=== PATIENT | male | born 2000 | race Caucasian/White ===

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

== ENCOUNTER 2020-06-25 04:54 | Emergency (ER) | payer MEDICAID ==
[~2020-06-25] VITALS: Ht 182.9 cm; Wt 83.9 kg
[2020-06-25] MEDS ORDERED: IBUPROFEN 600 MG TABLET PO ONE (05:00)
[2020-06-25] MEDS ORDERED: ACETAMINOPHEN 325 MG TABLET PO ONE (05:00)
[2020-06-25] MEDS ORDERED: IBUPROFEN 600 MG TABLET ONE (05:13)
[2020-06-25] MEDS ORDERED: ACETAMINOPHEN ES 500 MG TABLET ONE (05:13)
== END 2020-06-25 05:45 | disposition home or self-care (01) ==
LOC: ER 04:58
DX: M25.532 Pain in left wrist (principal); Z91.81 History of falling
CPT/HCPCS: 73110; A4663; A9150

== ENCOUNTER 2020-07-30 14:53 | Emergency (ER) | payer MEDICAID ==
[~2020-07-30] VITALS: Ht 182.9 cm; Wt 83.9 kg
--- NOTE | 2020-07-30 16:55 | NUR ---
Pt refused splint from here, stated he had one at home; Pt showed picture of theirs to MD who okay'ed it for use. Gave pt d/c instructions, pt verbalized understanding.
== END 2020-07-30 17:15 | disposition home or self-care (01) ==
LOC: ER 14:55
DX: M25.532 Pain in left wrist (principal)
CPT/HCPCS: 73110; A4663

== ENCOUNTER 2020-11-30 21:48 | Emergency (ER) | payer MEDICAID ==
[~2020-11-30] VITALS: Ht 182.9 cm; Wt 83.9 kg
--- NOTE | 2020-11-30 22:12 | NUR ---
PT AMBULATED TO ER WITH C/O UPPER ABD. PAIN SINCE THIS MORNING. A/O X4, NO SOB OR LABORED BREATHING. DENIES ANY N/V/D.
--- NOTE | 2020-11-30 22:25 | NUR ---
DR. DALAL AT BEDSIDE, MSE IN PROGRESS.
--- NOTE | 2020-11-30 22:57 | NUR ---
LAB AT BEDSIDE.
--- NOTE | 2020-11-30 23:01 | NUR ---
XRAY AT BEDSIDE.
[2020-11-30 23:12] LABS: HEMATOCRIT 46.7 % (36.7-47.1); MEAN CORPUSCULAR HEMOGLOBIN 29.5 uug (23.8-33.4); MEAN CORPUSCULAR VOLUME 84.1 fL (73.0-96.2); PLATELET COUNT (AUTO) 238 K/uL (152-348)
[2020-11-30 23:13] LABS: CREATININE 1.1 mg/dL (0.6-1.3); POTASSIUM 3.6 mmol/L (3.5-5.1)
[2020-11-30 23:13] LABS: *BILIRUBIN,URIN NEGATIVE (NEGATIVE); *BLOOD, URINE NEGATIVE (NEGATIVE); *CLARITY,URINE CLEAR (CLEAR); *COLOR,URINE YELLOW (YELLOW); *KETONES,URINE NEGATIVE (NEGATIVE); *UROBILINOGEN,URINE 0.2 E.U./dl (NORMAL); LEUKOCYTE ESTERASE ,URINE NEGATIVE (NEGATIVE); NITRITE, URINE NEGATIVE (NEGATIVE); UGLUCOSE NEGATIVE (NEGATIVE)
[2020-11-30 23:18] LABS: BILIRUBIN,DIRECT 0.1 mg/dL (0.0-0.2); BILIRUBIN,TOTAL 0.5 mg/dL (0.2-1.0); TOTAL PROTEIN, SERUM 7.8 g/dL (6.4-8.2)
[2020-11-30] MEDS ORDERED: MAG HYDROX/AL HYDROX/SIMETH 30 ML LIQUID UDC PO ONE (23:30)
[2020-11-30] MEDS ORDERED: LIDOCAINE VISCUS 2% 15 ML UDC MM ONE (23:30)
[2020-11-30] MEDS ORDERED: MAG HYDROX/AL HYDROX/SIMETH 30 ML LIQUID UDC ONE (23:38)
[2020-11-30] MEDS ORDERED: LIDOCAINE VISCUS 2% 15 ML UDC ONE (23:38)
--- NOTE | 2020-11-30 23:55 | NUR ---
US ([facility]) AT BEDSIDE.
[2020-12-01] MEDS ORDERED: OXYC-128 PO (00:11)
[2020-12-01] MEDS ORDERED: ONDA4TAB5 PO (00:11)
--- NOTE | 2020-12-01 00:20 | NUR ---
Patient discharged to home in stable condition. Denies any pain/discomfort upon discharge. Written and verbal after care instructions given. Patient verbalizes understanding of instructions. Stressed follow up or return to ER for worsening s/s. Steady gait.
[2020-12-01 00:21] VITALS: BP 118/79
== END 2020-12-01 00:21 | disposition home or self-care (01) ==
LOC: ER 21:50
DX: R10.13 Epigastric pain (principal); R11.0 Nausea
CPT/HCPCS: 36415; 74021; 83690; 85025; A4663